=== PATIENT | male | born 1995 | race American Indian/Alaskan Native ===

== ENCOUNTER 2019-11-23 08:38 | Emergency (ER) | payer OTHER ==
[2019-11-23 08:43] VITALS: BP 140/103
[2019-11-23] MEDS ORDERED: AMOXICILLIN/K CLAV 500/125MG TAB PO ONE (09:02)
[2019-11-23] MEDS ORDERED: SODIUM CHLORIDE 0.9% 1000 ML 1,000 ML IV ONE (09:02)
[2019-11-23] MEDS ORDERED: MORPHINE 2 MG/1 ML INJ IV ONE (09:02)
[2019-11-23] MEDS ORDERED: ONDANSETRON 4 MG/2 ML INJ IV ONE (09:02)
--- NOTE | 2019-11-23 09:02 | Emergency Department Report ---
ED Animal Bite HPI - General Chief Complaint: Animal Bite Stated Complaint: DOG BITE/LAST NITE Time Seen by Provider: 11/23/19 08:55 Source: patient Mode of arrival: Ambulatory Limitations: No Limitations - History of Present Illness Initial Comments: 24-year-old -Fil[place] male presents to the emergency room complaining of both hands, right upper arm and right leg being bitten by a pit bull last night while he was them from fighting. Patient states that the dogs are up-to-date on their vaccines. Patient states that he had his tetanus shot 2 years ago. Patient is taken nothing for the pain. Patient reports that he cleaned his wounds this morning. Patient reports a past medical history of anxiety and is started on a medication but has not taken it today. Patient denies any known drug allergies. Patient states his pain is a 9 out of 10. MD Complaint: animal bite, animal-related injury -: Last night Left: Forearm, Hand, Right: Hand, Leg Animal: dog Animal Control Notified: No Description: immunizations UTD Mechanism: bite, scratch Pain Description: sharp, burning, constant Severity scale (0 -10): 9 Context: animals fighting Associated Symptoms: erythema, bleeding, other (Nausea) Treatments Prior to Arrival: irrigation - Related Data Patient Tetanus UTD: Yes Previous Rx's Medication Instructions Recorded Last Taken Type Amoxicillin/Potassium Clav 1 each PO BID 10 Days #20 tablet 11/23/19 Unknown Rx [Augmentin 875-125 Tablet] Ibuprofen [Motrin 800 MG tab] 800 mg PO Q8HR PRN #21 tablet 11/23/19 Unknown Rx traMADoL [Ultram 50 MG tab] 50 mg PO Q6HR PRN #12 tablet 11/23/19 Unknown Rx Allergies Allergy/AdvReac Type Severity Reaction Status Date / Time No Known Allergies Allergy Unverified 11/23/19 08:40 ED Review of Systems ROS: Stated complaint: DOG BITE/LAST NITE Other details as noted in HPI Comment: All other systems reviewed and negative ED Past Medical Hx - Past Medical History Previous Medical History?: No - Surgical History Past Surgical History?: Yes Additional Surgical History: adnoids - Social History Smoking Status: Never Smoker Substance Use Type: None - Medications Home Medications: Home Medications Medication Instructions Recorded Confirmed Last Taken Type Amoxicillin/Potassium Clav 1 each PO BID 10 Days #20 tablet 11/23/19 Unknown Rx [Augmentin 875-125 Tablet] Ibuprofen [Motrin 800 MG tab] 800 mg PO Q8HR PRN #21 tablet 11/23/19 Unknown Rx traMADoL [Ultram 50 MG tab] 50 mg PO Q6HR PRN #12 tablet 11/23/19 Unknown Rx ED Physical Exam - General Limitations: No Limitations General appearance: alert, in no apparent distress - Head Head exam: Present: atraumatic, normocephalic - Eye Eye exam: Present: normal appearance - ENT ENT exam: Present: mucous membranes moist - Neck Neck exam: Present: normal inspection, full ROM - Respiratory Respiratory exam: Present: normal lung sounds bilaterally - Cardiovascular Cardiovascular Exam: Present: regular rate - GI/Abdominal GI/Abdominal exam: Present: soft, normal bowel sounds. Absent: distended, tenderness - Neurological Exam Neurological exam: Present: alert, oriented X3, normal gait - Expanded Skin Exam Expanded Type of lesion: Present: bite/sting Distribution of rash: RUE (Hands and wrists), LUE (Hands), RLE (Mid inner thigh) Description of rash: Present: tenderness, erythematous, swelling, other (Puncture wounds and scratches) ED Course Vital Signs 11/23/19 08:40 Temperature 97.7 F Pulse Rate 115 H Respiratory 18 Rate Blood Pressure 140/103 O2 Sat by Pulse 100 Oximetry Critical care attestation.: If time is entered above; I have spent that time in minutes in the direct care of this critically ill patient, excluding procedure time. ED Disposition Clinical Impression: Dog bite of multiple sites of right hand and fingers, Open wound of left hand due to dog bite, Open wound of right lower leg due to dog bite, Open wound of right wrist due to dog bite Disposition: DC-01 TO HOME OR SELFCARE Is pt being admited?: No Does the pt Need Aspirin: No Condition: Stable Additional Instructions: Complete antibiotics as prescribed. Take pain medication as needed. Do not operate heavy machinery while taking tramadol. Please keep your wounds clean and dry you can use Betadine to clean with an [id number] triple antibiotics. It is very important for you to follow-up with your primary care provider this week for reevaluation. Prescriptions: Amoxicillin/Potassium Clav [Augmentin 875-125 Tablet] 1 each PO BID 10 Days #20 tablet Ibuprofen [Motrin 800 MG tab] 800 mg PO Q8HR PRN #21 tablet PRN Reason: Pain , Severe (7-10) traMADoL [Ultram 50 MG tab] 50 mg PO Q6HR PRN #12 tablet PRN Reason: Pain Referrals: Your, primary care provider [Other] - 3-5 Days Forms: Work/School Release Form(ED)
== END 2019-11-23 10:51 | disposition home or self-care (01) ==
LOC: ED 08:38
DX: S41.151A Open bite of right upper arm, initial encounter (principal); S81.851A Open bite, right lower leg, initial encounter; S61.452A Open bite of left hand, initial encounter; S61.451A Open bite of right hand, initial encounter; S61.551A Open bite of right wrist, initial encounter; Z79.1 Long term (current) use of non-steroidal anti-inflammatories (NSAID); Z79.2 Long term (current) use of antibiotics; Z79.899 Other long term (current) drug therapy; W54.0XXA Bitten by dog, initial encounter; Y93.89 Activity, other specified; Y92.89 Other specified places as the place of occurrence of the external cause; Y99.8 Other external cause status
CPT/HCPCS: 96374; 96375; 99283; J2270; J2405; J7030